=== PATIENT | female | born 1990 | race Caucasian/White ===

== ENCOUNTER 2016-11-28 14:47 | Outpatient (CLI) | payer MEDICAID | END 2016-11-28 14:48 | disposition home or self-care (01) | DX: E28.2 Polycystic ovarian syndrome (principal) ==

== ENCOUNTER 2016-12-05 16:37 | Outpatient (CLI) | payer MEDICAID | END 2016-12-05 16:38 | disposition home or self-care (01) | DX: N97.0 Female infertility associated with anovulation (principal) ==

== ENCOUNTER 2017-05-28 08:00 | Outpatient (CLI) | payer MEDICAID | END 2017-05-28 08:01 | disposition home or self-care (01) | LOC: LAB 08:00 | PROVIDERS: ATTEND Obstetrics & Gynecology | DX: E28.2 Polycystic ovarian syndrome (principal) | CPT/HCPCS: 36415; 84144 ==

== ENCOUNTER 2017-08-22 10:31 | Outpatient (CLI) | payer MEDICAID | END 2017-08-22 10:32 | disposition home or self-care (01) | LOC: LAB.N 10:31 | PROVIDERS: ATTEND Obstetrics & Gynecology | DX: N97.0 Female infertility associated with anovulation (principal) | CPT/HCPCS: 36415; 84144 ==

== ENCOUNTER 2017-12-03 | Emergency (ER) | payer MEDICAID ==
--- NOTE | 2017-12-03 16:50 | ED Physician Documentation ---
History of Present Illness - Stated complaint Stated Complaint: WORK NOTE - Chief complaint Chief Complaint: General - History obtained from History obtained from: Patient - History of Present Illness Timing: Other (She missed a few days of work because of URI. She is all better without current symptoms of fever, chills, rhinorrhea, but her work requires her to have a note to go back to work. 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 Psych: Anxiety - Past Surgical History Past Surgical History: Yes HEENT: Tonsil/Adenoidectomy - Present Medications Home Medications: Ambulatory Orders Medication Instructions Recorded Confirmed Buprenorphine HCl/Naloxone HCl 1 each SL 01/15/14 01/15/14 [Suboxone 2 mg-0.5 mg Sl Film] Omeprazole [Prilosec] 40 mg PO 01/15/14 01/15/14 busPIRone [Buspar] 15 mg PO BID 01/15/14 12/03/17 Metoprolol Succinate 0 mg PO DAILY 08/10/16 08/10/16 - Allergies Allergies/Adverse Reactions: Allergies Allergy/AdvReac Type Severity Reaction Status Date / Time No Known Drug Allergies Allergy Verified 01/15/14 14:25 - Social History Does the pt smoke?: Yes Smoking Status: Current every day smoker Does the pt drink ETOH?: No Does the pt have substance abuse?: Yes Substance Use and Type: Marijuana - Immunizations Immunizations are current?: No Immunizations: TDAP >10years/unknown - POLST Patient has POLST: No PD ED PE NORMAL - Vitals Vital signs reviewed: Yes - General General: Alert and oriented X 3, No acute distress - Neuro Neuro: Alert and oriented X 3, Normal speech - Psych Psych: Normal mood, Normal affect Results - Vitals Vitals: Vital Signs - 24 hr 12/03/17 16:37 Temperature 36.8 C Heart Rate 62 Respiratory 18 Rate Blood Pressure 142/73 H O2 Saturation 98 Oxygen O2 Source Room air Departure - Departure Disposition: 01 Home, Self Care Clinical Impression: Normal exam Condition: Good Record reviewed to determine appropriate education?: Yes Comments: Your blood pressure was elevated today on check into the emergency department. This does not mean that you have hypertension, it is a common phenomenon to come to the emergency department and have elevated blood pressure. I recommend that you see your primary care physician within the week to have it rechecked when you are feeling better. Forms: Activity restrictions
== END 2017-12-03 16:52 | disposition home or self-care (01) ==
CPT/HCPCS: 99282

== ENCOUNTER 2017-12-24 18:55 | Emergency (ER) | payer MEDICAID ==
[2017-12-24 19:16] VITALS: BP 179/86
--- NOTE | 2017-12-24 21:19 | ED Physician Documentation ---
History of Present Illness - Stated complaint Stated Complaint: NEEDS RETURN TO WORK NOTE - Chief complaint Chief Complaint: General - History obtained from History obtained from: Patient - History of Present Illness Timing: Today - Additonal information Additional information: Patient is a 27 year old female with no significant past medical history who is presenting to the emergency department for a work note. patient states that she stayed home the last couple of days for flu like symptoms and needs a note saying she is ok to go back. Upon initial evaluation patient is alert and well appearing in no acute distress. Review of Systems Constitutional: denies: Fever, Chills, Myalgias Eyes: reports: Reviewed and negative Ears: reports: Reviewed and negative Nose: reports: Reviewed and negative Throat: reports: Reviewed and negative Cardiac: reports: Reviewed and negative Respiratory: denies: Cough GI: denies: Nausea, Vomiting : reports: Reviewed and negative Skin: reports: Reviewed and negative Musculoskeletal: reports: Reviewed and negative Neurologic: reports: Reviewed and negative Psychiatric: reports: Reviewed and negative Endocrine: reports: Reviewed and negative PD PAST MEDICAL HISTORY - Past Medical History Past Medical History: Yes Cardiovascular: None Respiratory: None Neuro: None Endocrine/Autoimmune: None GI: GERD 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, Other : None HEENT: None Psych: Anxiety Musculoskeletal: None Derm: None - Past Surgical History Past Surgical History: Yes HEENT: Tonsil/Adenoidectomy - Present Medications Home Medications: Ambulatory Orders Medication Instructions Recorded Confirmed Buprenorphine HCl/Naloxone HCl 1 each SL 01/15/14 01/15/14 [Suboxone 2 mg-0.5 mg Sl Film] Omeprazole [Prilosec] 40 mg PO 01/15/14 01/15/14 busPIRone [Buspar] 15 mg PO BID 01/15/14 12/03/17 - Allergies Allergies/Adverse Reactions: Allergies Allergy/AdvReac Type Severity Reaction Status Date / Time No Known Drug Allergies Allergy Verified 12/24/17 19:16 - Social History Does the pt smoke?: Yes Smoking Status: Current every day smoker Does the pt drink ETOH?: No Does the pt have substance abuse?: Yes - Immunizations Immunizations are current?: No Immunizations: TDAP >10years/unknown - POLST Patient has POLST: No PD ED PE NORMAL - Vitals Vital signs reviewed: Yes - General General: Alert and oriented X 3, No acute distress - HEENT HEENT: Atraumatic, PERRL - Neck Neck: Supple, no meningeal sign - Cardiac Cardiac: RRR - Respiratory Respiratory: No respiratory distress - Abdomen Abdomen: Non distended - Derm Derm: Normal color, No rash - Extremities Extremities: No deformity - Neuro Neuro: Alert and oriented X 3, No motor deficit, Normal speech Results - Vitals Vitals: Vital Signs - 24 hr 12/24/17 12/24/17 19:13 21:00 Temperature 37 C Heart Rate 75 Respiratory 18 17 Rate Blood Pressure 179/86 H O2 Saturation 98 Oxygen O2 Source Room air PD MEDICAL DECISION MAKING - ED course Complexity details: reviewed old records, re-evaluated patient, considered differential, d/w patient ED course: Patient was seen and examined at bedside. Patient was well appearing and in no distress. Return to work note was written and patient was stable for discharge with outpatient follow up. Departure - Departure Disposition: 01 Home, Self Care Clinical Impression: Normal exam Condition: Good Instructions: ED Viral Syndrome Follow-Up: primary,care provider [Other] - As Needed Forms: Activity restrictions
== END 2017-12-24 21:16 | disposition home or self-care (01) ==
LOC: ED 18:55
DX: Z00.00 Encounter for general adult medical examination without abnormal findings (principal); K21.9 Gastro-esophageal reflux disease without esophagitis; F17.200 Nicotine dependence, unspecified, uncomplicated
CPT/HCPCS: 99281; 99283

== ENCOUNTER 2018-05-21 09:37 | Outpatient (CLI) | payer BC, MEDICAID ==
[2018-05-21 12:54] LABS: HB2 TOTAL 15.8 g/dL; HEMOGLOBIN A1C 0.5 g/dL
== END 2018-05-21 09:38 | disposition home or self-care (01) ==
LOC: LAB.N 09:37
PROVIDERS: ATTEND Obstetrics & Gynecology
DX: E28.2 Polycystic ovarian syndrome (principal)
CPT/HCPCS: 36415; 83036

== ENCOUNTER 2018-07-29 13:57 | Outpatient (CLI) | payer BC, MEDICAID | END 2018-07-29 13:58 | disposition home or self-care (01) | LOC: NS 13:57 | PROVIDERS: ATTEND Obstetrics & Gynecology | DX: Z71.3 Dietary counseling and surveillance (principal); E66.9 Obesity, unspecified; E28.2 Polycystic ovarian syndrome | CPT/HCPCS: 97802 ==

== ENCOUNTER 2021-08-29 04:36 | Emergency (ER) | payer BC, MEDICAID, OTHER ==
[2021-08-29 05:07] LABS: BASOPHILS % (AUTO) 0.3 %; EOSINOPHILS # (AUTO) 0.2 10^3/uL (0.0-0.7); EOSINOPHILS % (AUTO) 1.7 %; HCT - HEMATOCRIT 48.1 % (37.0-47.0); HGB - HEMOGLOBIN 15.8 g/dL (12.0-16.0); LYMPHOCYTES # (AUTO) 2.5 10^3/uL (1.5-3.5); LYMPHOCYTES % (AUTO) 26.1 %; MEAN CORPUSCULAR HEMOGLOBIN 27.7 pg (27.0-31.0); MEAN CORPUSCULAR HGB CONC 32.8 g/dL (32.0-36.0); MEAN CORPUSCULAR VOLUME 84.4 fL (81.0-99.0); MEAN PLATELET VOLUME 8.9 fL (7.9-10.8); MONOCYTES # (AUTO) 0.6 10^3/uL (0.0-1.0); MONOCYTES % (AUTO) 6.3 %; NEUTROPHILS # (AUTO) 6.2 10^3/uL (1.5-6.6); NEUTROPHILS % (AUTO) 65.5 %; PLT - PLATELET COUNT 235 10^3/uL (130-450); RED CELL DISTRIBUTION WIDTH 12.8 % (12.0-15.0); WHITE BLOOD COUNT 9.4 x10^3/uL (4.8-10.8)
[2021-08-29 05:09] LABS: BILIRUBIN,URINE NEGATIVE (NEGATIVE); GLUCOSE, URINE (UA) NEGATIVE (NEGATIVE); KETONES,URINE (UA) NEGATIVE (NEGATIVE); LEUKOCYTE ESTERASE, URINE NEGATIVE (NEGATIVE); NITRITE,URINE NEGATIVE (NEGATIVE); OCCULT BLOOD,URINE TRACE-INTA (NEGATIVE); PROTEIN,URINE NEGATIVE (NEGATIVE); UROBILINOGEN,URINE 0.2 (NORMAL) E.U./dL (NORMAL)
[2021-08-29 05:10] LABS: CLARITY,URINE CLEAR (CLEAR)
[2021-08-29 05:25] LABS: HCG UR QUAL NEGATIVE
[2021-08-29 05:26] LABS: ALBUMIN 4.1 g/dL (3.2-5.5); ALBUMIN/GLOBULIN RATIO 1.5 (1.0-2.2); BILIRUBIN,TOTAL 0.6 mg/dL (0.2-1.0); CALCIUM 8.9 mg/dL (8.5-10.3); CREATININE 0.6 mg/dL (0.4-1.0); POTASSIUM 3.8 mmol/L (3.5-5.0); TOTAL PROTEIN 6.9 g/dL (6.7-8.2)
[2021-08-29] MEDS ORDERED: ONDANSETRON 4 MG/2 ML VIAL IVP STA (05:58)
[2021-08-29] MEDS ORDERED: KETOROLAC 30 MG/ML VIAL IVP STA (05:58)
--- NOTE | 2021-08-29 06:08 | ED Physician Documentation ---
PD HPI ABD PAIN - Stated complaint Stated Complaint: ABD PX, N/V - Chief complaint Chief Complaint: Abd Pain - History obtained from History obtained from: Patient - History of Present Illness Timing - onset: Today Timing - duration: Hours Timing - details: Abrupt onset, Still present Quality: Cramping, Sharp, Pain Location: RUQ, Epigastric Improved by: Laying still Worsened by: Breathing, Position, Palpation Associated symptoms: Nausea, Vomiting Similar symptoms before: Has not had sx before Recently seen: Not recently seen - Additional information Additional information: 31-year-old female on Suboxone chronically awoke this morning with right upper quadrant abdominal pain nausea and vomiting and she is not able to take her Sub oxone. She has not had issues with Suboxone previously causing any issues with nausea or vomiting.She still has her gallbladder. 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 : None HEENT: None Psych: Anxiety Musculoskeletal: None Derm: None - Past Surgical History Past Surgical History: Yes HEENT: Tonsil/Adenoidectomy - Present Medications Home Medications: Ambulatory Orders Medication Instructions Recorded Confirmed Buprenorphine HCl/Naloxone HCl 1 each SL 01/15/14 01/15/14 [Suboxone 2 mg-0.5 mg Sl Film] Omeprazole [Prilosec] 40 mg PO DAILY 01/15/14 01/15/14 busPIRone [Buspar] 15 mg PO BID 01/15/14 08/29/21 Ondansetron Odt [Zofran] 4 mg TL Q6H PRN #10 tablet 08/29/21 - Allergies Allergies/Adverse Reactions: Allergies Allergy/AdvReac Type Severity Reaction Status Date / Time No Known Drug Allergies Allergy Verified 08/29/21 04:53 - Social History Does the pt smoke?: Yes Smoking Status: Current every day smoker Does the pt drink ETOH?: No Does the pt have substance abuse?: Yes - Immunizations Immunizations are current?: No Immunizations: TDAP >10years/unknown - POLST Patient has POLST: No PD ED PE NORMAL - Vitals Vital signs reviewed: Yes - General General: Alert and oriented X 3, Well developed/nourished, Other (31 y/o female appears to be in pain moaning and vomiting. ) - HEENT HEENT: Atraumatic, PERRL, EOMI - Neck Neck: Supple, no meningeal sign, No bony TTP - Cardiac Cardiac: RRR, No murmur - Respiratory Respiratory: No respiratory distress, Clear bilaterally - Abdomen Abdomen: Normal bowel sounds, Soft, Non distended, No organomegaly, Other (RUQ tenderness with increase with inspiration. 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, No motor deficit, No sensory deficit, Normal speech Eye Opening: Spontaneous Motor: Obeys Commands Verbal: Oriented GCS Score: 15 - Psych Psych: Normal mood, Normal affect Results - Vitals Vitals: Vital Signs - 24 hr 08/29/21 08/29/21 08/29/21 04:40 06:17 06:56 Temperature 36.1 C L 36.3 C L Heart Rate 74 50 L 48 L Respiratory 20 16 14 Rate Blood Pressure 146/107 H 146/83 H 152/88 H O2 Saturation 95 96 95 Oxygen O2 Source Room air - Labs Labs: Laboratory Tests 08/29/21 08/29/21 08/29/21 05:00 05:00 05:00 WBC 9.4 RBC 5.70 H Hgb 15.8 Hct 48.1 H MCV 84.4 MCH 27.7 MCHC 32.8 RDW 12.8 Plt Count 235 MPV 8.9 Neut # (Auto) 6.2 Lymph # (Auto) 2.5 Walton # (Auto) 0.6 Eos # (Auto) 0.2 Baso # (Auto) 0.0 Absolute Nucleated RBC 0.00 Nucleated RBC % 0.0 Sodium 142 Potassium 3.8 Chloride 105 Carbon Dioxide 25 Anion Gap 12.0 BUN 17 Creatinine 0.6 Estimated GFR (MDRD) 115 Glucose 118 H Calcium 8.9 Total Bilirubin 0.6 AST 21 ALT 28 Alkaline Phosphatase 78 Total Protein 6.9 Albumin 4.1 Globulin 2.8 Albumin/Globulin Ratio 1.5 Lipase 37 Urine Color YELLOW Urine Clarity CLEAR Urine pH 5.0 Ur Specific Ollie >=1.030 H Urine Protein NEGATIVE Urine Glucose (UA) NEGATIVE Urine Ketones NEGATIVE Urine Occult Blood TRACE-INTA Urine Nitrite NEGATIVE Urine Bilirubin NEGATIVE Urine Urobilinogen 0.2 (NORMAL) Ur Leukocyte Esterase NEGATIVE Ur Microscopic Review NOT INDICATED Urine Culture Comments NOT INDICATED Urine HCG, Qual 08/29/21 05:00 WBC RBC Hgb Hct MCV MCH MCHC RDW Plt Count MPV Neut # (Auto) Lymph # (Auto) Walton # (Auto) Eos # (Auto) Baso # (Auto) Absolute Nucleated RBC Nucleated RBC % Sodium Potassium Chloride Carbon Dioxide Anion Gap BUN Creatinine Estimated GFR (MDRD) Glucose Calcium Total Bilirubin AST ALT Alkaline Phosphatase Total Protein Albumin Globulin Albumin/Globulin Ratio Lipase Urine Color Urine Clarity Urine pH Ur Specific Ollie Urine Protein Urine Glucose (UA) Urine Ketones Urine Occult Blood Urine Nitrite Urine Bilirubin Urine Urobilinogen Ur Leukocyte Esterase Ur Microscopic Review Urine Culture Comments Urine HCG, Qual NEGATIVE Procedures - Bedside sono Bedside sono by EMP: With use of bedside ultrasound the gallbladder is imaged after the patient has received pain control and there is minimal tenderness. There is no gallbladder wall thickening pericholecystic fluid and no obvious stone. PD MEDICAL DECISION MAKING - ED course Complexity details: reviewed old records, reviewed results, re-evaluated patient, considered differential, d/w patient ED course: 31-year-old female has been dieting on the [place] diet and she has vacillated back and forth has lost about 30 pounds and this morning early she developed acute right upper quadrant abdominal pain nausea and vomiting. She came into the emergency department feeling very miserable. This was remedied by administration of intravenous Zofran and Toradol. She had essential resolution of her symptoms felt much improved. She is administered a liter of saline as well. Departure - Departure Disposition: 01 Home, Self Care Clinical Impression: Abdominal pain Qualifiers: Abdominal location: right upper quadrant Qualified Code(s): R10.11 - Right upper quadrant pain Vomiting Qualifiers: Vomiting type: bilious vomiting Nausea presence: with nausea Qualified Code(s): R11.14 - Bilious vomiting Condition: Stable Instructions: ED Abdominal Pain Unkn Cause, ED Diet Vomiting Diarrhea Follow-Up: [facility] [Provider Group] [facility] [Provider Group] Prescriptions: Ondansetron Odt [Zofran] 4 mg TL Q6H PRN #10 tablet PRN Reason: Nausea / Vomiting Comments: Karly, today it appears the pain you had in your right upper quadrant is likely related to your gallbladder. There were no obvious stones on our bedside examination. Extreme weight loss can lead to gallstone formation and if you continue to get symptoms similar to this, a follow-up with the surgeon is indicated.
[2021-08-29] MEDS ORDERED: SODIUM CHLORIDE 0.9% 1,000 ML IV STA (06:46)
[2021-08-29 07:15] VITALS: BP 117/79
== END 2021-08-29 07:16 | disposition home or self-care (01) ==
LOC: ED 04:36
DX: R10.11 Right upper quadrant pain (principal); R11.14 Bilious vomiting; F17.200 Nicotine dependence, unspecified, uncomplicated
CPT/HCPCS: 36415; 80053; 81001; 81003; 81025; 83690; 85025; 87086; 96374; 96375; 99284

== ENCOUNTER 2023-12-26 08:00 | Outpatient (CLI) | payer OTHER ==
[2023-12-26 12:14] LABS: BASOPHILS % (AUTO) 0.7 %; EOSINOPHILS # (AUTO) 0.1 10^3/uL (0.0-0.7); EOSINOPHILS % (AUTO) 1.5 %; HCT - HEMATOCRIT 47.6 % (37.0-47.0); HGB - HEMOGLOBIN 15.1 g/dL (12.0-16.0); LYMPHOCYTES # (AUTO) 1.8 10^3/uL (1.5-3.5); LYMPHOCYTES % (AUTO) 38.6 %; MEAN CORPUSCULAR HEMOGLOBIN 26.9 pg (27.0-31.0); MEAN CORPUSCULAR HGB CONC 31.7 g/dL (32.0-36.0); MEAN CORPUSCULAR VOLUME 84.8 fL (81.0-99.0); MONOCYTES # (AUTO) 0.3 10^3/uL (0.0-1.0); MONOCYTES % (AUTO) 5.7 %; NEUTROPHILS # (AUTO) 2.4 10^3/uL (1.5-6.6); NEUTROPHILS % (AUTO) 52.4 %; PLT - PLATELET COUNT 269 10^3/uL (130-450); RED BLOOD COUNT 5.61 10^6/uL (4.20-5.40); RED CELL DISTRIBUTION WIDTH 12.9 % (12.0-15.0); WHITE BLOOD COUNT 4.5 x10^3/uL (4.8-10.8)
[2023-12-26 12:31] LABS: CALCIUM 9.7 mg/dL (8.5-10.3); CREATININE 0.8 mg/dL (0.6-1.3); POTASSIUM 3.8 mmol/L (3.5-4.5)
[2023-12-26 14:21] LABS: ALBUMIN 4.5 g/dL (3.2-5.5); BILIRUBIN,TOTAL 0.5 mg/dL (0.2-1.0)
== END 2023-12-26 23:59 | disposition home or self-care (01) ==
LOC: LAB.N 08:00
PROVIDERS: ATTEND Physician Assistant
DX: E28.2 Polycystic ovarian syndrome (principal); Z11.1 Encounter for screening for respiratory tuberculosis
CPT/HCPCS: 36415; 80048; 80053; 81599; 82040; 82247; 84075; 84155; 84450; 84460; 85025; 86480